=== PATIENT | female | born 1955 | race Caucasian/White ===

== ENCOUNTER 2019-02-28 13:28 | Emergency (ER) | payer BC, MEDICARE ==
--- NOTE | 2019-02-28 13:50 | Emergency Department Record ---
History of Present Illness - General Chief complaint: Rectal bleeding Stated complaint: RECTAL BLEEDING Time Seen by Provider: 02/28/19 13:43 Source: Patient, RN notes reviewed Mode of Arrival: Ambulatory - History of Present Illness Initial comments: possible rectal bleeding and this started 45 minutes ago one episode of bright blood on her underware . Patient's last colonoscopy 5 years ago Onset/Timin -: Minutes(s) Consistency: Constant Improves with: None Worsens with: None Associated Symptoms: Denies other symptoms - Related Data Home Medications Medication Instructions Recorded Confirmed Last Taken Lisinopril 20 mg PO DAILY 02/28/19 02/28/19 02/28/19 Lovastatin 20 mg PO DAILY 02/28/19 02/28/19 02/28/19 Tamoxifen Citrate 20 mg PO DAILY 02/28/19 02/28/19 02/28/19 Allergies Allergy/AdvReac Type Severity Reaction Status Date / Time No Known Drug Allergies Allergy Verified 02/28/19 13:40 Travel Screening - Travel/Exposure Within Last 30 Days Have you traveled within the last 30 days?: No - Travel/Exposure Within Last Year Have you traveled outside the [place] in the last year?: No - Additonal Travel Details Have you been exposed to anyone with a communicable illness?: No - Travel Symptoms Symptom Screening: None Review of Systems Reviewed: No additional complaints except as noted below Constitutional: Reports: As per HPI. Denies: Chills, Fever, Malaise, Night swea ts, Weakness, Weight change Eyes: Reports: As per HPI. Denies: Eye discharge, Eye pain, Photophobia, Vision change ENT: Reports: As per HPI. Denies: Congestion, Dental pain, Ear pain, Epistaxis, Hearing loss, Throat pain Respiratory: Reports: As per HPI. Denies: Cough, Dyspnea, Hemoptysis, Stridor, Wheezes Cardiovascular: Reports: As per HPI. Denies: Arrhythmia, Chest pain, Dyspnea on exertion, Edema, Murmurs, Orthopnea, Palpitations, Paroxysmal nocturnal dyspnea, Rheumatic Fever, Syncope Endocrine: Reports: As per HPI. Denies: Fatigue, Heat or cold intolerance, P olydipsia, Polyuria Gastrointestinal: Reports: As per HPI. Denies: Abdominal pain, Constipation, Diarrhea, Hematemesis, Hematochezia, Melena, Nausea, Vomiting Genitourinary: Reports: As per HPI. Denies: Abnormal menses, Discharge, Dyspareunia, Dysuria, Frequency, Hematuria, Incontinence, Retention, Urgency Musculoskeletal: Reports: As per HPI. Denies: Arthralgia, Back pain, Gout, Joint swelling, Myalgia, Neck pain Skin: Reports: As per HPI. Denies: Bruising, Change in color, Change in hair/n ails, Lesions, Pruritus, Rash Neurological: Reports: As per HPI. Denies: Abnormal gait, Confusion, Headache, Numbness, Paresthesias, Seizure, Tingling, Tremors, Vertigo, Weakness Psychiatric: Reports: As per HPI. Denies: Anxiety, Auditory hallucinations, Depression, Homicidal thoughts, Suicidal thoughts, Visual hallucinations Hematological/Lymphatic: Reports: As per HPI. Denies: Anemia, Blood Clots, Easy bleeding, Easy bruising, Swollen glands Past Medical History - SOCIAL HISTORY Smoking Status: Never smoker Alcohol Use: None Drug Use: None - RESPIRATORY Hx Respiratory Disorders: No - CARDIOVASCULAR Hx Cardio Disorders: No - NEURO Hx Neuro Disorders: No Hx TIA: No (possibly, pt unsure) - GI Hx GI Disorders: No - Hx Genitourinary Disorders: No - ENDOCRINE Hx Endocrine Disorders: No - MUSCULOSKELETAL Hx Musculoskeletal Disorders: No - PSYCH Hx Psych Problems: No - HEMATOLOGY/ONCOLOGY Hx Hematology/Oncology Disorders: Yes Hx Cancer: Yes (left breast) Family Medical History Any Significant Family History?: No Physical Exam - General General Appearance: Alert, Oriented x3, Cooperative, No acute distress - Head Head exam: Normal inspection - Eye Eye exam: Normal appearance, PERRL Pupils: Normal accommodation - ENT ENT exam: Normal exam, Mucous membranes moist, Normal external ear exam, Normal orophraynx, TM's normal bilaterally Ear exam: Normal external inspection. negative: External canal tenderness Nasal Exam: Normal inspection. negative: Discharge, Sinus tenderness Mouth exam: Normal external inspection, Tongue normal Teeth exam: Normal inspection. negative: Dental caries Throat exam: Normal inspection. negative: Tonsillar erythema, Tonsillar exudate - Neck Neck exam: Normal inspection, Full ROM. negative: Tenderness - Respiratory Respiratory exam: Normal lung sounds bilaterally. negative: Respiratory distress - Cardiovascular Cardiovascular Exam: Regular rate, Normal rhythm, Normal heart sounds - GI/Abdominal GI/Abdominal exam: Soft, Normal bowel sounds. negative: Tenderness - Rectal Rectal exam: Bloody stool, Heme (+) stool, Other (exam done with Mercedes) - exam: Normal external exam, Normal speculum exam. negative: Vaginal bleeding, Vaginal discharge, Vaginal erythema - Extremities Extremities exam: Normal inspection, Full ROM, Normal capillary refill. negative: Tenderness - Back Back exam: Reports: Normal inspection, Full ROM. Denies: Muscle spasm, Rash not ed, Tenderness - Neurological Neurological exam: Alert, Normal gait, Oriented X3, Reflexes normal - Psychiatric Psychiatric exam: Normal affect, Normal mood - Skin Skin exam: Dry, Intact, Normal color, Warm Course Vital Signs 02/28/19 13:32 Temperature 98.3 F Pulse Rate 104 H Respiratory 18 Rate Blood Pressure 135/91 Pulse Ox 95 - Reevaluation(s) Reevaluation #1: 02/28/19 14:[address] Argueta and he wants the patient to call him and set up an appointment and he wants doxycline oral given Reevaluation #2: vaginal exam no vaginal bleeding rectal exam bright red blood on the examining finger and hemmocult positive 02/28/19 14:37 Medical Decision Making - Data Complexity MDM Data: Labs Ordered and/or Reviewed (hg 13.6) - Lab Data Result diagrams: 02/28/19 13:53 02/28/19 13:53 Disposition Clinical Impression: Rectal bleeding Disposition: Home, Self-Care Condition: (1) Good Instructions: Rectal Bleeding (ED) Additional Instructions: follow up with Viviana tomorrow at 8:25AM for a recheck to make sure she doesn't bleed to much. please do a HG at 7:30 am Forms: Patient Portal Access Time of Disposition: 14:44 Quality - Quality Measures Quality Measures: N/A - Blood Pressure Screening Does Patient Have Any of the Following: No Blood Pressure Classification: Hypertensive Reading Systolic Measurement: 135 Diastolic Measurement: 91 Screening for High Blood Pressure: < Pre-Hypertensive BP, F/U Documented > [G8950] Pre-Hypertensive Follow-up Interventions: Referral to alternative/primary care provider. First Hypertensive Follow-up Interventions: Referral to alternative/primary care provider.
[2019-02-28 14:04] LABS: ABSOLUTE NEUTROPHIL COUNT 4.65; BASO % 0.5 % (0-6); EOS % 1.1 % (0-6); GRAN % 70.8 % (47-80); HEMATOCRIT 41.7 % (35.0-47.0); HEMOGLOBIN 13.6 gm/dl (11.6-16.0); LYMPH % 18.1 % (16-45); MEAN CELL VOLUME 89.9 fl (81-97); MEAN CORPUSCULAR HEMOGLOBIN 29.3 pg (27-33); MEAN CORPUSCULAR HGB CONC 32.6 g/dl (32-36); MEAN PLATELET VOLUME 9.7 fl (7.4-10.4); MONO % 9.5 % (0-9); PLATELET COUNT 249 K/uL (130-400); RED BLOOD COUNT 4.64 M/uL (3.80-5.40); WHITE BLOOD COUNT W/O DIFF 6.6 K/uL (4.2-12.2)
[2019-02-28 14:12] LABS: BLOOD UREA NITROGEN 24 mg/dL (8-23); CREATININE 0.8 mg/dL (0.5-0.9); EST GLOMERULAR FILTRATION RATE > 60 mL/min
[2019-02-28 14:15] LABS: GLUCOSE,RANDOM 116 mg/dL (74-109)
== END 2019-02-28 15:04 | disposition home or self-care (01) ==
LOC: ER 13:28
DX: K62.5 Hemorrhage of anus and rectum (principal); Z85.3 Personal history of malignant neoplasm of breast
CPT/HCPCS: 80048; 82272; 85025; 99284

== ENCOUNTER 2019-07-11 11:29 | Day surgery (SDC) | payer BC, MEDICARE ==
[2019-07-11] MEDS ORDERED: LIDOCAINE 2% MDV (20MG/ML) 20ML VIAL IV ONE (11:30)
[2019-07-11] MEDS ORDERED: PROPOFOL 10 MG/ML VIAL IV ONE (11:30)
--- NOTE | 2019-07-13 10:10 | Operative Note ---
OPERATION: COLONOSCOPY to the cecum with cold biopsy forceps polypectomy x1. INDICATION: An episode of rectal bleeding which lasted 1 day and completely resolved. Her last examination colonoscopy was approximately 5 years ago. She returns at this time for further evaluation. ANESTHESIA: Intravenous sedation was administered by the department of anesthesiology and included Diprivan titrated to effect. PROCEDURE: Following informed consent from this alert individual including a discussion of the risks and benefits of the procedure and an opportunity for the patient to ask questions, the patient was in the left lateral decubitus position. A digital rectal examination was performed. No abnormalities were noted. Following this, the Olympus [id number] video colonoscope was inserted into the rectum without resistance. The rectal mucosa had a normal appearance with normal folds and distensibility. The sigmoid colon demonstrated scattered diverticula. The colonoscope was further advanced up through the bowel to the level of the cecum without much difficulty. Throughout the remainder of the bowel, the mucosa appeared normal, the folds were normal, and the bowel was fairly well distensible. The cecum was well defined by noting the appendiceal orifice and ileocecal valve. The terminal ileum was briefly cannulated and found to be unremarkable as well. From the base of the cecum, the colonoscope was then slowly withdrawn. Again the right colon and transverse colon were endoscopic normal. Descending colon likewise was free from changes. The sigmoid colon had a rather significant diverticulosis with a diminutive 3 mm polyp noted. The polyp was removed with cold biopsy forceps. The colonoscope was then drawn back into the rectum where retroflexion accomplished following air insufflation demonstrated small internal hemorrhoids. The endoscope was straightened and removed. No additional changes were seen. The patient tolerated the procedure well and was returned to the recovery area in stable condition. IMPRESSION: 1. Sigmoid diverticulosis. 2. A 3 mm sigmoid polyp removed with biopsy forceps. 3. Small internal hemorrhoids. RECOMMENDATIONS: Further recommendations will be forthcoming pending results of pathology obtained today. The patient will be following up with Dr. Bella. As always, thank you for allowing me to participate in the care of your patient. NICHELLE
== END 2019-07-11 14:20 | disposition home or self-care (01) ==
LOC: HOP 11:29
PROVIDERS: ATTEND Internal Medicine Gastroenterology
DX: K62.5 Hemorrhage of anus and rectum (principal); D12.5 Benign neoplasm of sigmoid colon; K57.30 Diverticulosis of large intestine without perforation or abscess without bleeding; K64.8 Other hemorrhoids; I10 Essential (primary) hypertension; E78.00 Pure hypercholesterolemia, unspecified; C50.919 Malignant neoplasm of unspecified site of unspecified female breast